=== PATIENT | male | born 1950 | race Hispanic/Latino ===

== ENCOUNTER 2019-03-14 06:55 | Day surgery (SDC) | payer OTHER, MEDICARE ==
[2019-03-12 10:06] VITALS: BP 133/71
[2019-03-12 10:32] LABS: INR 1.12 (0.85-1.15); PROTHROMBIN TIME 11.7 SEC (9.6-11.6)
[2019-03-12 10:34] LABS: CREATININE 0.7 mg/dL (0.5-1.5); POTASSIUM 4.3 mmol/L (3.5-5.1)
[2019-03-12 11:00] LABS: BASOPHILS % (AUTO) 1.1 % (0.0-5.0); EOSINOPHILS % (AUTO) 2.3 % (0.0-8.0); HEMATOCRIT 45.8 % (42-54); LYMPHOCYTES % (AUTO) 35.3 % (21.0-51.0); MEAN CORPUSCULAR HEMOGLOBIN 32.3 pg (27.0-33.0); MEAN CORPUSCULAR HGB CONC 33.9 g/dL (32.0-36.0); MEAN CORPUSCULAR VOLUME 95.4 fL (79-99); MONOCYTES % (AUTO) 10.6 % (3.0-13.0); NEUTROPHILS % (AUTO) 50.7 % (40.0-77.0); PLATELET COUNT (AUTO) 139 K/uL (130-400); RED CELL DISTRIBUTION WIDTH 13.2 % (11.0-15.5); WHITE BLOOD COUNT (AUTO) 3.5 K/uL (4.8-10.8)
[2019-03-12 11:09] LABS: APPEARANCE,URINE Clear (CLEAR); BILIRUBIN,URINE Negative (NEGATIVE); COLOR,URINE Yellow (YELLOW); GLUCOSE, URINE (UA) Negative (NEGATIVE); KETONES,URINE Negative (NEGATIVE); LEUKOCYTE ESTERASE ,URINE Trace (NEGATIVE); NITRATE,URINE Negative (NEGATIVE); OCCULT BLOOD,URINE Negative (NEGATIVE); PROTEIN,URINE Negative (NEGATIVE)
[2019-03-12 12:15] LABS: BACTERIA,URINE None Seen /HPF (None Seen); RBC,URINE 0-1 /HPF (0-1); SQUAMOUS EPITHELIAL CELL,UR 0-2 /HPF (0-2); WBC,URINE 0-1 /HPF (0-1)
[2019-03-12 12:16] LABS: HYALINE CASTS, URINE 0-1 /LPF (0-1 /LPF); URIC ACID CRYSTALS,URINE Few /LPF (None Seen)
[2019-03-14] VITALS (9 sets, daily range): BP systolic 127–168; BP diastolic 62–83
[~2019-03-14] VITALS: Ht 167.6 cm; Wt 55.1 kg
[~2019-03-14 06:55] MED LIST: ATOR20TA65 PO
[2019-03-14] MEDS ORDERED: SODIUM CHLORIDE 0.9% 1000ML 1,000 ML IV ONE (07:33)
[2019-03-14] MEDS ORDERED: ASPI-555 PO (08:28)
--- NOTE | 2019-03-14 08:29 | NUR ---
PROCEDURE PT HERE FOR PROCEDURE WITH SON. DENIES ANY CHEST PAIN SOB AT THIS TIME. PTS SKIN RED TO CHEST AND BACK. SON STATES HE IS ALWAYS OUTSIDE.
--- NOTE | 2019-03-14 13:01 | NUR ---
PROCEDURE PT TAKEN TO PROCEDURE VIA STRETCHER BY Shania PACKER RN. SON AT BEDSIDE.
[2019-03-14] MEDS ORDERED: HEPARIN SODIUM 1000UNIT/ML 10ML VIAL ONE (13:18)
[2019-03-14] MEDS ORDERED: VERAPAMIL HCL 2.5 MG/ML VIAL ONE (13:18)
[2019-03-14] MEDS ORDERED: LIDOCAINE HCL 2% 20ML ONE (13:19)
[2019-03-14] MEDS ORDERED: NITROGLYCERIN 5 MG/ML 10 ML VIAL IV ONE (13:19)
[2019-03-14] MEDS ORDERED: IOHEXOL-350 50ML VIAL IV ONE (13:19)
[2019-03-14] MEDS ORDERED: IOHEXOL 350 MG/ML 100ML INFUS..BTL IV ONE (13:19)
[2019-03-14] MEDS ORDERED: FENTANYL CITRATE PF 50 MCG/1 ML 2ML VIAL ONE (13:42)
[2019-03-14] MEDS ORDERED: MIDAZOLAM HCL 1 MG/ML 2ML VIAL ONE (13:42)
[2019-03-14] MEDS ORDERED: SODIUM CHLORIDE 0.9% 1000ML 1,000 ML IV SCH (14:24)
[2019-03-14] MEDS ORDERED: DEXTROSE 50%-WATER 50 ML DISP.SYRIN IV PRN (14:30)
[2019-03-14] MEDS ORDERED: GLUCAGON 1MG KIT 1 MG ML IM PRN (14:30)
[2019-03-14] MEDS ORDERED: HYDRALAZINE HCL 20 MG/ML VIAL ONE (14:37)
--- NOTE | 2019-03-14 15:00 | NUR ---
PROCEDURE RECEIVED PT FROM [employer] XIMENA GIL. PT LYING FLAT IN BED AND INSTRUCTED ON IMPORTANCE OF NOT MOVING RIGHT LEG AND NOT LIFTING HEAD UP OFF OF BED. BOTH PT AND SON VERBALIZED UNDERSTANDING. OP SITE NOTED TO LEFT WRIST WHERE ACCESSED AND NOT SUCCESSFUL. NO BLEEDING, OOZING NOTED TO SITE. SOFT TO TOUCH.
--- NOTE | 2019-03-14 16:44 | NUR ---
REPORT REPORT GIVEN TO XIMENA NEVAREZ. PT LYING IN BED. SITE TO [facility] GROIN SOFT TO TOUCH. NO BLEEDING,OOZING NOTED TO SITE.
== END 2019-03-14 18:20 | disposition home or self-care (01) ==
LOC: DAH 06:55
PROVIDERS: ATTEND Internal Medicine Cardiovascular Disease
DX: I25.709 Atherosclerosis of coronary artery bypass graft(s), unspecified, with unspecified angina pectoris (principal); E78.5 Hyperlipidemia, unspecified; Z79.82 Long term (current) use of aspirin; Z79.01 Long term (current) use of anticoagulants; Z79.899 Other long term (current) drug therapy
CPT/HCPCS: 36415; 71045; 80048; 81001; 85025; 85610; 85730; 93005; 93459; A4215; A4216; A4221; A4222; A4223 ×2; A4606; C1760; C1769; C1894 ×3; J0360; J1644 ×2; J2250; J3010; J3490 ×3; J7030; Q9965; Q9967 ×2; 99156; 99157

== ENCOUNTER 2021-12-03 10:53 | Observation (INO) | payer OTHER, MEDICARE ==
[~2021-12-03] VITALS: Ht 162.6 cm; Wt 56.7 kg
[~2021-12-03 10:53] MED LIST changes: +ASPI-556 PO
[2021-12-03] MEDS ORDERED: NITROGLYCERIN 1GM OINT 1 INCH/1GM TD ONE (11:00)
[2021-12-03] MEDS ORDERED: ASPIRIN 81MG CHEW TAB PO ONE (11:00)
[2021-12-03 11:14] LABS: CREATININE 0.9 mg/dL (0.5-1.5); POTASSIUM 3.6 mmol/L (3.5-5.1)
[2021-12-03 11:19] LABS: ALBUMIN 3.9 g/dL (3.5-5.0); BILIRUBIN,TOTAL 0.6 mg/dL (0.2-1.0); TOTAL PROTEIN, SERUM 7.3 g/dL (6.0-8.3)
[2021-12-03 11:33] LABS: B-TYPE NATRIURETIC PEPTIDE 48 pg/mL (0-100)
[2021-12-03 11:35] LABS: BASOPHILS % (AUTO) 0.7 % (0.0-5.0); EOSINOPHILS % (AUTO) 0.8 % (0.0-8.0); HEMATOCRIT 42.8 % (42-54); LYMPHOCYTES % (AUTO) 22.5 % (21.0-51.0); MEAN CORPUSCULAR HEMOGLOBIN 30.6 pg (27.0-33.0); MEAN CORPUSCULAR HGB CONC 33.6 g/dL (32.0-36.0); MEAN CORPUSCULAR VOLUME 91.1 fL (79-99); MONOCYTES % (AUTO) 4.8 % (3.0-13.0); NEUTROPHILS % (AUTO) 70.7 % (40.0-77.0); PLATELET COUNT (AUTO) 186 K/uL (130-400); RED CELL DISTRIBUTION WIDTH 12.8 % (11.0-15.5); WHITE BLOOD COUNT (AUTO) 7.7 K/uL (4.8-10.8)
[2021-12-03 11:36] LABS: INR 1.15 (0.85-1.15); PROTHROMBIN TIME 12.4 SEC (9.6-11.6)
[2021-12-03 11:37] LABS: PARTIAL THROMBOPLASTIN TIME 24.1 SEC (26.3-35.5)
[2021-12-03] MEDS ORDERED: ACETAMINOPHEN 325 MG TAB PO PRN (14:00)
[2021-12-03] MEDS ORDERED: ONDANSETRON 4MG INJ IV PRN (14:00)
[2021-12-03] MEDS ORDERED: NITROGLYCERIN 0.4 MG SL TAB SL PRN (14:00)
[2021-12-03] MEDS ORDERED: LACTULOSE 20 GM/30 ML UDCUP PO PRN (14:00)
[2021-12-03] MEDS ORDERED: ACETAMINOPHEN WITH CODEINE 1 TAB TAB PO PRN (14:00)
[2021-12-03] MEDS ORDERED: ZOLPIDEM TARTRATE 5 MG TAB PO PRN (14:00)
[2021-12-03 14:43] LABS: ALANINE AMINOTRANSFERASE 54 U/L (12-78); ALBUMIN 3.7 g/dL (3.5-5.0); ASPARTATE AMINOTRANSFERASE 42 U/L (10-37); BILIRUBIN,DIRECT 0.2 mg/dL (0.0-0.3); BILIRUBIN,TOTAL 0.6 mg/dL (0.2-1.0)
[2021-12-03 14:46] LABS: INR 1.17 (0.85-1.15); PROTHROMBIN TIME 12.6 SEC (9.6-11.6)
[2021-12-03 14:48] LABS: PARTIAL THROMBOPLASTIN TIME 25.3 SEC (26.3-35.5)
[2021-12-03 14:50] LABS: AMMONIA < 9 umol/L (11-32)
[2021-12-03] MEDS: 0.9%NACL 1000ML 1,000 ML IV SCH (15:14)
[2021-12-03 15:16] LABS: APPEARANCE,URINE Clear (CLEAR); BILIRUBIN,URINE Negative (NEGATIVE); COLOR,URINE Yellow (YELLOW); GLUCOSE, URINE (UA) Negative (NEGATIVE); KETONES,URINE 40 mg/dL (NEGATIVE); LEUKOCYTE ESTERASE ,URINE Negative (NEGATIVE); NITRATE,URINE Negative (NEGATIVE); OCCULT BLOOD,URINE Negative (NEGATIVE); PROTEIN,URINE Negative (NEGATIVE); UROBILINOGEN,URINE 0.2 mg/dL (0.2-1.0)
[2021-12-03 15:20] LABS: AMPHET/METH SCREEN,URINE NEGATIVE (NEGATIVE); BARBITURATE SCREEN, URINE NEGATIVE (NEGATIVE); BENZODIAZEPINES SCREEN,URINE NEGATIVE (NEGATIVE); CANNABINOID SCREEN,URINE NEGATIVE (NEGATIVE); COCAINE SCREEN,URINE NEGATIVE (NEGATIVE); OPIATE SCREEN,URINE NEGATIVE (NEGATIVE); PHENCYCLIDINE SCREEN,URINE NEGATIVE (NEGATIVE)
[2021-12-03 16:35] LABS: BACTERIA,URINE Rare /HPF (None Seen); RBC,URINE 0-1 /HPF (0-1); SQUAMOUS EPITHELIAL CELL,UR None Seen /HPF (0-2); WBC,URINE 0-1 /HPF (0-1)
[2021-12-03] MEDS: FAMOTIDINE 20MG VIAL IV SCH (21:08)
[2021-12-04] VITALS (12 sets, daily range): BP systolic 138–172; BP diastolic 72–84
[2021-12-04] MEDS: 0.9%NACL 1000ML 1,000 ML IV SCH ×2 (02:49→15:06)
[2021-12-04] MEDS ORDERED: TAMSULOSIN PO (03:24)
[2021-12-04] MEDS ORDERED: ISOS60TA77 PO (03:24)
[2021-12-04] MEDS ORDERED: METO200T49 PO (03:24)
[2021-12-04 05:55] LABS: HEMOGLOBIN A1C 5.9 % (4.0-6.0)
[2021-12-04 06:03] LABS: ALBUMIN 3.2 g/dL (3.5-5.0); BILIRUBIN,DIRECT 0.2 mg/dL (0.0-0.3); BILIRUBIN,TOTAL 0.7 mg/dL (0.2-1.0); TOTAL PROTEIN, SERUM 6.1 g/dL (6.0-8.3)
[2021-12-04] MEDS ORDERED: PRASUGREL HCL 10 MG TABLET PO SCH ×2 (09:00)
[2021-12-04] MEDS: METOPROLOL SUCCINATE 50 MG TAB.SR.24H PO SCH (09:00)
[2021-12-04] MEDS ORDERED: ISOSORBIDE MONO 30MG SR TAB PO SCH (09:00)
[2021-12-04] MEDS ORDERED: ASPIRIN 81MG CHEW TAB PO SCH (09:00)
[2021-12-04] MEDS ORDERED: 0.9% NACL 500ML IV.SOLN 500 ML IV SCH (09:00)
[2021-12-04] MEDS: FAMOTIDINE 20MG VIAL IV SCH ×2 (09:00→21:00)
[2021-12-04] MEDS: TAMSULOSIN HCL 0.4 MG CAP.ER.24H PO SCH (09:00)
[2021-12-04] MEDS ORDERED: ENOXAPARIN SODIUM 40 MG/0.4 ML SYRINGE SQ SCH (09:00)
[2021-12-04 09:47] LABS: CHOLESTEROL 190 mg/dL (<200); HDL CHOLESTEROL 47 mg/dL (29-71); LDL DIRECT 120 mg/dL (0-99); TRIGLYCERIDES 98 mg/dL (30-200)
[2021-12-04] MEDS ORDERED: IOHEXOL-350 50ML VIAL IV ONE (16:14)
[2021-12-04] MEDS ORDERED: NITROGLYCERIN 50MG VIAL ONE (16:14)
[2021-12-04] MEDS ORDERED: HEPARIN 10,000 UNIT/10ML (1,000 UNIT/ML) VIAL ONE (16:14)
[2021-12-04] MEDS ORDERED: MIDAZOLAM HCL 1 MG/ML 2ML VIAL ONE (16:15)
[2021-12-04] MEDS ORDERED: IOHEXOL 350 MG/ML 100ML INFUS..BTL IV ONE (16:15)
[2021-12-04] MEDS ORDERED: FENTANYL CITRATE PF 50 MCG/1 ML 2ML VIAL ONE (16:15)
[2021-12-04] MEDS ORDERED: LIDOCAINE HCL 400MG/20ML VIAL ONE (16:15)
[2021-12-04] MEDS ORDERED: PHARMACY COMMUNICATION MISC SCH (16:30)
[2021-12-04] MEDS ORDERED: BIVALIRUDIN 250 MG/VIAL IV ONE (16:40)
[2021-12-04] MEDS ORDERED: ASPIRIN 325MG EC TAB PO ONE (17:03)
[2021-12-04] MEDS ORDERED: ATOR40TA71 PO (17:28)
[2021-12-04] MEDS ORDERED: PRAS10TA9 PO (17:28)
[2021-12-04] MEDS ORDERED: 0.9%NACL 1000ML 1,000 ML IV SCH (17:30)
[2021-12-04] MEDS ORDERED: HYDRALAZINE 20MG/ML VIAL ONE (17:32)
[2021-12-04] MEDS: ENOXAPARIN SODIUM 60 MG/0.6 ML SQ SCH ×2 (20:59→21:00)
[2021-12-04] MEDS ORDERED: ATORVASTATIN 40 MG TABLET PO SCH (21:00)
[2021-12-05] VITALS: BP 145/70
[2021-12-05 01:00] VITALS: BP 151/76
[2021-12-05 04:10] VITALS: BP 141/76
[2021-12-05 05:19] LABS: BASOPHILS % (AUTO) 0.6 % (0.0-5.0); EOSINOPHILS % (AUTO) 1.9 % (0.0-8.0); HEMATOCRIT 40.4 % (42-54); LYMPHOCYTES % (AUTO) 22.7 % (21.0-51.0); MEAN CORPUSCULAR HEMOGLOBIN 30.4 pg (27.0-33.0); MEAN CORPUSCULAR HGB CONC 33.7 g/dL (32.0-36.0); MEAN CORPUSCULAR VOLUME 90.2 fL (79-99); MONOCYTES % (AUTO) 9.5 % (3.0-13.0); PLATELET COUNT (AUTO) 176 K/uL (130-400); RED BLOOD CELL COUNT(AUTO) 4.48 MIL/uL (4.50-6.20); RED CELL DISTRIBUTION WIDTH 12.9 % (11.0-15.5); WHITE BLOOD COUNT (AUTO) 6.4 K/uL (4.8-10.8)
[2021-12-05 05:38] LABS: ALBUMIN 3.4 g/dL (3.5-5.0); BILIRUBIN,TOTAL 0.8 mg/dL (0.2-1.0); CREATININE 0.8 mg/dL (0.5-1.5); POTASSIUM 3.6 mmol/L (3.5-5.1); TOTAL PROTEIN, SERUM 6.5 g/dL (6.0-8.3)
[2021-12-05 08:50] VITALS: BP 151/88
[2021-12-05] MEDS: ENOXAPARIN SODIUM 60 MG/0.6 ML SQ SCH (09:00)
[2021-12-05] MEDS ORDERED: PRASUGREL HCL 10 MG TABLET PO SCH (09:00)
[2021-12-05] MEDS ORDERED: ASPIRIN 81MG CHEW TAB PO SCH (09:00)
[2021-12-05] MEDS ORDERED: CLOPIDOGREL 75MG TAB PO SCH (09:00)
[2021-12-05] MEDS: TAMSULOSIN HCL 0.4 MG CAP.ER.24H PO SCH (09:04)
[2021-12-05] MEDS: FAMOTIDINE 20MG VIAL IV SCH (09:04)
[2021-12-05] MEDS: METOPROLOL SUCCINATE 50 MG TAB.SR.24H PO SCH (09:04)
[2021-12-05 11:43] VITALS: BP 121/73
== END 2021-12-05 15:00 | disposition home or self-care (01) ==
LOC: EDH 10:53 → EDHIP 13:57 → 3AH 12-04 02:38
PROVIDERS: ADMIT Internal Medicine Critical Care Medicine; ATTEND Internal Medicine Critical Care Medicine
DX: I21.4 Non-ST elevation (NSTEMI) myocardial infarction (principal); Z20.822 Contact with and (suspected) exposure to COVID-19; I24.9 Acute ischemic heart disease, unspecified; I25.10 Atherosclerotic heart disease of native coronary artery without angina pectoris; R07.89 Other chest pain; I10 Essential (primary) hypertension; E87.0 Hyperosmolality and hypernatremia; H91.90 Unspecified hearing loss, unspecified ear; I25.2 Old myocardial infarction; E78.00 Pure hypercholesterolemia, unspecified; E78.5 Hyperlipidemia, unspecified; N40.0 Benign prostatic hyperplasia without lower urinary tract symptoms; Z79.899 Other long term (current) drug therapy
CPT/HCPCS: 83880 ×2; 96374; 96361 ×2; 83540; 83550; 83735 ×3; 84484 ×3; 80053 ×2; 80305; 82140; 85025 ×2; 85378; 85610 ×2; 85730 ×2; 81001; 36415 ×3; 87635; 71045; 99291; 93005; 84145; 93455; 96376 ×2; 83036; 80076; 80061; 85347; 93306; 93356; 97161; 97039; G0378 ×48; J3490 ×5; C1769 ×2; C1887 ×2; C1894 ×2; C1760; C1874; C1725 ×2; Q9965 ×2; J3010; J0360; J1644 ×2; J2250; Q9967; C9604; 99156; 99157; J0583; J1650

== ENCOUNTER → 2023-11-21 | Outpatient (CLI) | payer OTHER, MEDICARE ==
[~2023-11-21] MED LIST changes: +AEC81 PO; -ATOR20TA65 PO; +ATOR40TA69 PO; +CHOL500050 PO; +ERGO50CA PO; +EZET10TA81 PO; +LISI5TAB21 PO; +MECO10005 PO; +METO50 PO; +PRAS10TA6 PO; +TAMSULOSIN PO
== END | disposition home or self-care (01) ==
LOC: RAH 09:34
PROVIDERS: ATTEND Family Medicine
DX: Z13.6 Encounter for screening for cardiovascular disorders (principal); Z12.2 Encounter for screening for malignant neoplasm of respiratory organs; R91.1 Solitary pulmonary nodule; J84.10 Pulmonary fibrosis, unspecified; I70.0 Atherosclerosis of aorta; I25.10 Atherosclerotic heart disease of native coronary artery without angina pectoris; I70.8 Atherosclerosis of other arteries; M47.815 Spondylosis without myelopathy or radiculopathy, thoracolumbar region; Z98.890 Other specified postprocedural states; Z87.891 Personal history of nicotine dependence
CPT/HCPCS: 71250; 76706; 76775

== ENCOUNTER → 2024-07-27 | Outpatient (CLI) | payer OTHER, MEDICARE ==
[2024-07-27 12:45] LABS: ALBUMIN 4.5 g/dL (3.5-5.0); BILIRUBIN,TOTAL 1.2 mg/dL (0.2-1.0); CREATININE 0.8 mg/dL (0.5-1.3); POTASSIUM 4.8 mmol/L (3.5-5.1); TOTAL PROTEIN, SERUM 7.8 g/dL (6.0-8.3)
== END | disposition home or self-care (01) ==
LOC: LAB 08:45
PROVIDERS: ATTEND Internal Medicine Cardiovascular Disease
DX: I25.10 Atherosclerotic heart disease of native coronary artery without angina pectoris (principal); R63.4 Abnormal weight loss
CPT/HCPCS: 36415; 80053; 80061

== ENCOUNTER → 2024-11-29 | Outpatient (CLI) | payer OTHER, MEDICARE ==
[~2024-11-29] MED LIST changes: +PRAS10TA20 PO; -PRAS10TA6 PO
--- NOTE | 2024-11-29 14:57 | HMCIMG ---
CT CHEST W/O CONTRAST HISTORY: Nicotine dependence COMPARISON: None TECHNIQUE: Multiple sequential axial images of the chest were obtained from the thoracic inlet through upper abdomen. Patient was not given contrast through intravenous route. FINDINGS: There is no evidence of pulmonary nodule or parenchymal disease. No pleural effusion or pericardial effusion is seen. There is no evidence of pneumothorax. There are normal size mediastinal and hilar lymph nodes. Ascending thoracic aorta measures 3.2 cm. Coronary arterial calcifications are seen. Gallstones are seen in the contracted gallbladder. The heart is not enlarged. Degenerative changes of the thoracolumbar spine are present. There is no evidence of adrenal nodule. IMPRESSION: 1. No evidence of pulmonary nodule or effusion is seen. CT was performed with one or more following dose reduction techniques: automated exposure control, adjustment of the mA and kv according to patient's size, or use of a iterative reconstruction technique.
== END | disposition home or self-care (01) ==
LOC: RAH 12:25
PROVIDERS: ATTEND Internal Medicine
DX: Z12.2 Encounter for screening for malignant neoplasm of respiratory organs (principal); M47.815 Spondylosis without myelopathy or radiculopathy, thoracolumbar region; I70.0 Atherosclerosis of aorta; K80.20 Calculus of gallbladder without cholecystitis without obstruction; Z87.891 Personal history of nicotine dependence
CPT/HCPCS: 71250